=== PATIENT | female | born 1945 | race Caucasian/White ===

== ENCOUNTER 2016-11-02 10:10 | Emergency (ER) | payer MEDICARE, BC ==
[2016-11-02 10:42] VITALS: BP 153/90
--- NOTE | 2016-11-02 11:16 | EDM.PDOC ---
ED HPI GENERAL MEDICAL PROBLEM - General Chief Complaint: Genitourinary Problem Stated Complaint: POSSIBLE UTI Time Seen by Provider: 11/02/16 11:00 Source of Information: Reports: Patient History Limitations: Reports: No Limitations - History of Present Illness INITIAL COMMENTS - FREE TEXT/NARRATIVE: This lady is here because of dysuria. She's had a lot of problems with bladder infections in the past. She sees a gynecologic urologist. She gets some kind of estrogen pellet implants to help with bladder and urethral irritation. She is also using some kind of an intravaginal device to help with bio feedback. Sort of like Pita exercises. This device was adjusted recently and it caused a great deal of discomfort so she had to remove it. She does drink a lot of water every day. She takes nitrofurantoin daily as prophylaxis for infections. She denies any fever - Related Data Allergies Allergy/AdvReac Type Severity Reaction Status Date / Time celecoxib [From Celebrex] Allergy Hives Verified 11/02/16 10:38 Home Meds: Home Meds Calcium Carbonate/Vitamin D3 [Calcium 600 + Vit D 200] 1 tab PO BID 11/02/16 [ History] Docusate Sodium [Colace] 1 tab PO BID 11/02/16 [History] Erythromycin Base [Erythromycin 0.5% Ophth Oint] 1 applic EYEBOTH BEDTIME [History] Fish Oil/DHA/EPA [Fish Oil 1,200 MG] 1 tab PO DAILY 11/02/16 [History] Nitrofurantoin Macrocrystal [Macrodantin] 1 tab PO DAILY 11/02/16 [History] Omeprazole 1 tab PO DAILY 11/02/16 [History] Triamterene/Hydrochlorothiazid [Triamterene-HCTZ 37.5-25 MG] 1 cap PO DAILY [History] atorvaSTATin [Lipitor] 1 tab PO DAILY 11/02/16 [History] cycloSPORINE [Restasis] 1 applic EYEBOTH BID 11/02/16 [History] traZODone 25 mg PO BEDTIME PRN 11/02/16 [History] Past Medical History HEENT History: Reports: Cataract, Other (See Below) Other HEENT History: chronic dry eye Cardiovascular History: Reports: High Cholesterol, Hypertension, Other (See Below) Other Cardiovascular History: bradycardia Respiratory History: Reports: Asthma Gastrointestinal History: Reports: Chronic Constipation, GERD Genitourinary History: Reports: Other (See Below) Other Genitourinary History: bladder lift [employer]IST History: Reports: Musculoskeletal History: Reports: Fracture, Other (See Below) Other Musculoskeletal History: several feet surgeries hammer toe and bunyan Oncologic (Cancer) History: Reports: Basal Cell Carcinoma Dermatologic History: Reports: Melanoma - Infectious Disease History Infectious Disease History: Reports: Chicken Pox, Measles, Mumps - Past Surgical History HEENT Surgical History: Reports: Cataract Surgery Female Surgical History: Reports: Hysterectomy, Salpingo-Oophorectomy Social & Family History - Tobacco Use Smoking Status *Q: Never Smoker - Caffeine Use Caffeine Use: Reports: Soda, Tea - Recreational Drug Use Recreational Drug Use: No ED ROS GENERAL - Review of Systems Review Of Systems: ROS reveals no pertinent complaints other than HPI. ED EXAM, RENAL/ - Physical Exam Exam: See Below Exam Limited By: No Limitations General Appearance: Alert, WD/WN, No Apparent Distress Course - Vital Signs Last Recorded V/S: Last Vital Signs Temp 36.1 C 11/02/16 11:00 Pulse 64 11/02/16 11:00 Resp 14 11/02/16 11:00 BP 153/90 H 11/02/16 11:00 Pulse Ox 91 L 11/02/16 11:00 - Orders/Labs/Meds Labs: Laboratory Tests 11/02/16 Range/Units 10:39 Urine Color Brown Urine Appearance Turbid Urine pH 8.0 (4.5-8.0) Ur Specific [place] 1.010 (1.008-1.030) Urine Protein 30 H (NEGATIVE) mg/dL Urine Glucose (UA) Normal (NEGATIVE) mg/dL Urine Ketones Negative (NEGATIVE) mg/dL Urine Occult Blood Large (NEGATIVE) Urine Nitrite Negative (NEGATIVE) Urine Bilirubin Negative (NEGATIVE) Urine Urobilinogen Normal (NORMAL) mg/dL Ur Leukocyte Esterase Large (NEGATIVE) Urine RBC Semi-packed H (0-5) Urine WBC Packed H (0-5) Ur Epithelial Cells Few Amorphous Sediment Not seen Urine Bacteria Moderate Urine Mucus Few - Re-Assessments/Exams Free Text/Narrative Re-Assessment/Exam: 11/02/16 11:20 Urinalysis is packed with both WBCs and RBCs. We had a discussion about antibiotics the TMP/SMX as well as the nitrofurantoin please see the discharge instructions area Departure - Departure Time of Disposition: 11:12 Disposition: Home, Self-Care 01 Condition: Fair Clinical Impression: Hemorrhagic cystitis - Discharge Information Instructions: Hematuria, Adult Referrals: PCP,None [Primary Care Provider] - Forms: ED Department Discharge Additional Instructions: Take TMP/SMX double strength 1 tablet twice daily for one week. You may stop taking the nitrofurantoin while you were taking the new antibiotic however you should talk with your Dr. before permanently discontinuing nitrofurantoin. The urine has been cultured. If the infection is not sensitive to TMP/SMX then you will be called. You however will not receive a call if the infection is resistant to nitrofurantoin so that is something that your Dr. should check. Also since there was some blood in the urine it should be rechecked in about a week to make sure there is no more blood since blood in the urine can be a sign of a more serious condition. Talk to your doctor about whether or not the device might have something to do with causing the infection
== END 2016-11-02 11:20 | disposition home or self-care (01) ==
LOC: JP.ED 10:10
DX: N30.90 Cystitis, unspecified without hematuria (principal); I10 Essential (primary) hypertension; E78.00 Pure hypercholesterolemia, unspecified; J45.909 Unspecified asthma, uncomplicated; Z85.820 Personal history of malignant melanoma of skin; Z79.899 Other long term (current) drug therapy; Z88.8 Allergy status to other drugs, medicaments and biological substances; Z90.710 Acquired absence of both cervix and uterus; Z90.721 Acquired absence of ovaries, unilateral
CPT/HCPCS: 81001; 99281; 99284

== ENCOUNTER 2023-03-02 22:46 | Emergency (ER) | payer BC, MEDICARE ==
[2023-03-02 23:14] VITALS: BP 202/97; PULSE 61
== END 2023-03-03 00:43 | disposition home or self-care (01) ==
LOC: JP.ED 22:46
DX: L76.22 Postprocedural hemorrhage of skin and subcutaneous tissue following other procedure (principal); S31.813A Puncture wound without foreign body of right buttock, initial encounter; I10 Essential (primary) hypertension; J45.909 Unspecified asthma, uncomplicated; I48.91 Unspecified atrial fibrillation; K21.9 Gastro-esophageal reflux disease without esophagitis; Z88.6 Allergy status to analgesic agent; Z79.899 Other long term (current) drug therapy; Z79.01 Long term (current) use of anticoagulants; X58.XXXA Exposure to other specified factors, initial encounter
CPT/HCPCS: 12001; 99283